=== PATIENT | female | born 1950 | race Caucasian/White ===

== ENCOUNTER 2017-03-23 09:18 | Emergency (ER) | payer OTHER ==
[~2017-03-23] VITALS: Ht 160 cm; Wt 86.3 kg
[2017-03-23 09:23] VITALS: BP 137/78; PULSE 81; RESP 18; TEMP 98; O2SAT 95
[2017-03-23] MEDS ORDERED: LIOT50 PO (09:38)
[2017-03-23] MEDS ORDERED: LEVO125T4 PO (09:38)
--- NOTE | 2017-03-23 09:51 | PD ---
HPI Chief Complaint: Cold / Flu Symptoms Time Seen by Provider: 09:36 Travel History International Travel<30 days: Yes Contact w/Intl Traveler<30days: [place] Traveled to: [place], [place], [facility], [facility], [place] Traveled to known affect area: No History of Present Illness HPI 66-year-old female presents to the emergency room for evaluation of nonproductive cough, congestion, sore throat for the past 3 days. Patient states she developed symptoms shortly after getting off a cruise ship. Her is sick with similar symptoms. She has been taking [id number] allergy medication without significant relief in symptoms. Worst symptom is congestion. She denies fever, chills, nausea, vomiting. No history of lung disease. 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 [facility] Past Medical History Thyroid Disease: Yes Past Surgical History Surgical History: No Previous Surgery Social History Alcohol Use: Yes (occ) Tobacco Use: No Substance Use: No Allergies-Medications (Allergen,Severity, Reaction): Coded Allergies: No Known Allergies (Unverified , 03/23/17) Reported Meds & Prescriptions Reported Meds & Active Scripts Active Reported Cytomel (Liothyronine Sodium) 50 Mcg Tab 50 Mcg PO DAILY Levothyroxine (Levothyroxine Sodium) 125 Mcg Tab 125 Mcg PO DAILY Review of Systems Except as stated in HPI: all other systems reviewed are Neg Physical Exam Narrative GENERAL: Well-nourished, well-developed female in no acute distress. Afebrile. Ambulatory. SKIN: Focused skin assessment warm/dry. HEAD: Normocephalic. EYES: No scleral icterus. No injection or drainage. ENT: Mucosa pink and moist. No erythema or exudates. No uvular edema. No uvular , palatal, or tonsillar deviation. Airway patent. NECK: Supple, trachea midline. No JVD or lymphadenopathy. CARDIOVASCULAR: Regular rate and rhythm without murmurs, gallops, or rubs. RESPIRATORY: Breath sounds equal bilaterally. No accessory muscle use. No crackles, rales, wheezes, or rhonchi. Data Data Last Documented VS Vital Signs Date Time Temp Pulse Resp B/P (MAP) Pulse Ox O2 Delivery O2 Flow Rate FiO2 03/23/17 09:23 98.0 81 18 137/78 (97) 95 [facility] Medical Decision Making Medical Screen Exam Complete: Yes Emergency Medical Condition: Yes Medical Record Reviewed: Yes Differential Diagnosis URI, pneumonia, bronchitis Narrative Course 66-year-old female presents to the emergency room for evaluation of cough, congestion, and sore throat for the past 3 days. Has been a sick with similar symptoms. They contracted illness after getting off of a cruise ship. Patient is afebrile and well-appearing in the emergency room. Vital signs stable. Lungs sounds clear and equal bilaterally. No evidence of pneumonia, bronchitis , or strep throat. Likely viral upper respiratory infection. Patient was told to continue [id number] cough and cold medications as directed on box. Told to follow up with her PCP in one week if symptoms persist for antibiotics or return sooner for worsening symptoms. She understands and agrees to plan. Diagnosis Primary Impression: Upper respiratory infection Qualified Codes: J00 - Acute nasopharyngitis [common cold] Referrals: Primary Care Physician Additional Instructions: Rest and drink plenty of fluids. [id number] cough and cold medications as directed. Follow-up with a primary care physician in one week if symptoms persist. Return to the emergency room for worsening symptoms. Med/Other Pt SpecificInfo: Prescription(s) given Disposition: 01 DISCHARGE HOME Condition: Stable Ewelina Dickens Mar 23, 2017 09:51
== END 2017-03-23 10:05 | disposition home or self-care (01) ==
LOC: PHEFT 09:18
DX: J00 Acute nasopharyngitis [common cold] (principal)
CPT/HCPCS: 99282